=== PATIENT | male | born 1970 | race Caucasian/White ===

== ENCOUNTER 2016-08-23 13:24 | Emergency (ER) | payer BC ==
[2016-08-23 13:50] VITALS: RESP 18; TEMP 98.4
[2016-08-23] MEDS ORDERED: KETOROLAC 30 MG/1 ML SDV IVP ONE (14:11)
--- NOTE | 2016-08-23 14:21 | UCPHY ---
H & P Time Seen by Provider: 08/23/16 14:00 Patient Type: New HPI/ROS: CHIEF COMPLAINT: Low back pain HPI: The patient is a 46-year-old male with a history of lumbar spine surgery approximately 16 years ago. Patient complains of severe low back pain, primarily midline and to the left. This has been present for approximately 1 month. It is significantly worse with standing, sitting and while at work. Patient denies any numbness, weakness or incontinence. He states with his prior surgery, he was having weakness of his right leg but has no weakness at this time. He denies acute trauma. He denies abdominal pain. REVIEW OF SYSTEMS: Aside from elements discussed in the HPI, a comprehensive 10-point review of systems was reviewed and is negative. PMH: History of spinal surgery secondary to herniated disc. SOCIAL HISTORY: From [facility]. Works as a truck despatcher. Denies alcohol or drug abuse. FAMILY HISTORY: Reviewed, noncontributory PHYSICAL EXAM: General:Patient is alert, in no acute distress. ENT:Eyes are normal to inspection. ENT inspection normal. Neck: Normal inspection. Full range of motion. Respiratory:No respiratory distress. Breath sounds normal bilaterally. Cardiovascular: Regular rate and rhythm. Strong peripheral pulses. Normal cap refill. Abdomen:The abdomen is nontender to palpation. There are no peritoneal signs. There are normal bowel sounds. No pulsatile mass. Back: Normal to inspection. No tenderness to palpation. Significant pain with range of motion is noted. Skin: Normal color. No rash. Warm and dry. Extremities: Normal appearance. Full range of motion. Neuro: Oriented x3. Normal motor function. Normal sensory function. 5/5 strength dorsiflexion and plantar flexion bilaterally. Smoking Status: Never smoked Constitutional: Initial Vital Signs Temperature (C) 36.9 C 08/23/16 13:47 Heart Rate 79 08/23/16 13:47 Respiratory Rate 18 08/23/16 13:47 Blood Pressure 137/91 H 08/23/16 13:47 O2 Sat (%) 97 08/23/16 13:47 O2 Delivery Mode Room Air Allergies/Adverse Reactions: No Known Allergies Allergy (Unverified 11/23/12 17:30) Home Medications: Medication Instructions Recorded Metaxalone [Skelaxin 800 mg (*)] 800 mg PO TID PRN #12 tab 08/23/16 methylPREDNISolone [Medrol Dose 1 each PO AD #1 ea 08/23/16 Kranthi] oxyCODONE/APAP 5/325 [Percocet 1 - 2 tab PO Q4H PRN #20 tab 08/23/16 5/325 (*)] MDM/Departure - MDM Medications Given: Discontinued Medications Fentanyl (Sublimaze) 100 mcg IVP EDNOW ONE Stop: 08/23/16 15:11 Last Admin: 08/23/16 15:25 Dose: 100 mcg Ketorolac Tromethamine (Toradol) 60 mg IVP EDNOW ONE Stop: 08/23/16 14:12 Last Admin: 08/23/16 14:45 Dose: 60 mg ED Course/Re-evaluation: This patient presents with acute low back pain in the setting of previous back surgery. He denies red flags for cauda equina syndrome. Due to his previous surgery, I ordered an XR of his L-spine. This is negative for fracture, but a significant amount of likely gaseous distention in sigmoid is noted. I re- examined patient who does state he has been having some abdominal pain recently , and has some mild tenderness in the suprapubic region. I have ordered a non- contrast CT to further evaluate this. Thankfully this is read as negative. There are signs of disc degeneration/herniation on CT. The patient would benefit from outpatient MRI. On repeat examination, the patient feels much better. I will discharge him home with oral steroids, muscle relaxants and pain medicine. He has been given referral to Neurosurgery. - Depart Disposition: Home, Routine, Self-Care Clinical Impression: Low back pain Condition: Good Instructions: Low Back Strain (ED) Additional Instructions: Followup with a medical specialist within one week. Return to the emergency department for severe pain, fever, numbness, difficulty walking, change in location or nature of pain or other concerns. Use ibuprofen and Tylenol as directed. Try using a heating pad. Prescriptions: Metaxalone [Skelaxin 800 mg (*)] 800 mg PO TID PRN #12 tab PRN Reason: Spasms methylPREDNISolone [Medrol Dose Kranthi] 1 each PO AD #1 ea oxyCODONE/APAP 5/325 [Percocet 5/325 (*)] 1 - 2 tab PO Q4H PRN #20 tab PRN Reason: Pain, Severe Referrals: Tammy Ojeda, [Doctor of Osteopathy] - As per Instructions - PQRS PQRS Measurement: 134: Depression screening and followup, PRIME MD-PHQ2 (12 years and older) Over the last 2 weeks, how often have you been bothered by any of the following problems? 1. Feeling down, depressed, or hopeless? 2. Little interest or pleasure in doing things? Patient answered no to both 1 and 2 130: Documentation of medications. Reviewed all patient medications, doses, route and frequency. 226: Do you smoke? yes 51: 18 years old and older with diagnosis of COPD, spirometry performance. Spirometry not performed; equipment not available. Patient has no history of COPD 52: 18 years old and older with COPD and symptoms of COPD or FEV1<60% predicted prescribed a B Agonist. Spirometry not performed; equipment not available.
[2016-08-23] MEDS ORDERED: fentaNYL 100 MCG/2 ML INJ IVP ONE (15:10)
[2016-08-23 15:57] VITALS: BP 107/72; PULSE 53; O2SAT 94
== END 2016-08-23 15:57 | disposition home or self-care (01) ==
LOC: CED 13:24
DX: M54.5 Low back pain (principal); Z98.890 Other specified postprocedural states
CPT/HCPCS: 72100-PO; 74176-PO; 96372-PO; 96374-PO; 96375-PO; G0463-PO; J1885; J3010

== ENCOUNTER 2018-11-11 13:55 | Emergency (ER) | payer OTHER, BC | END 2018-11-11 16:07 | disposition home or self-care (01) ==